=== PATIENT | male | born 1995 | race Caucasian/White ===

== ENCOUNTER 2023-05-05 17:54 | Emergency (ER) | payer OTHER, BC ==
[2023-05-05] MEDS ORDERED: Ketorolac Tromethamine 30 MG (1 mL) VIAL ONE (18:29)
[2023-05-05] MEDS ORDERED: Acetaminophen 500 MG TAB ONE (18:30)
== END 2023-05-05 19:10 | disposition home or self-care (01) ==
LOC: CSHERS 17:54
DX: M25.512 Pain in left shoulder (principal); V89.2XXA Person injured in unspecified motor-vehicle accident, traffic, initial encounter
CPT/HCPCS: 71045; 96372; J1885